=== PATIENT | male | born 1970 ===

== ENCOUNTER → 2023-11-01 08:27 | Outpatient (REF) | payer OTHER, SELFPAY | LOC: PAVMRI 08:27 | PROVIDERS: ATTENDING PHYSICIAN Internal Medicine Cardiovascular Disease; FAMILY PHYSICIAN Family Medicine | DX: I51.7 Cardiomegaly (principal); R07.9 Chest pain, unspecified | CPT/HCPCS: 75561; 75565; A9585 ==

== ENCOUNTER → 2023-12-05 18:04 | Outpatient (REF) | payer OTHER, SELFPAY | LOC: MRI 3T 18:04 | PROVIDERS: ATTENDING PHYSICIAN Internal Medicine; FAMILY PHYSICIAN Family Medicine | DX: I81 Portal vein thrombosis (principal) | CPT/HCPCS: 74183; A9575 ==

== ENCOUNTER → 2023-12-08 06:36 | Day surgery (SDC) | payer OTHER, SELFPAY | LOC: GI 06:36 | PROVIDERS: ATTENDING PHYSICIAN Internal Medicine | DX: Z12.11 Encounter for screening for malignant neoplasm of colon (principal); K57.30 Diverticulosis of large intestine without perforation or abscess without bleeding; R93.3 Abnormal findings on diagnostic imaging of other parts of digestive tract; K44.9 Diaphragmatic hernia without obstruction or gangrene; K26.9 Duodenal ulcer, unspecified as acute or chronic, without hemorrhage or perforation; I85.00 Esophageal varices without bleeding; D12.0 Benign neoplasm of cecum; D12.3 Benign neoplasm of transverse colon; D12.4 Benign neoplasm of descending colon; K29.50 Unspecified chronic gastritis without bleeding | CPT/HCPCS: 45385; 43239; 88305; 88342 ==

== ENCOUNTER → 2024-06-18 18:24 | Outpatient (REF) | payer OTHER, SELFPAY | LOC: MRI 3T 18:24 | PROVIDERS: ATTENDING PHYSICIAN Internal Medicine Hematology & Oncology; FAMILY PHYSICIAN Family Medicine | DX: I81 Portal vein thrombosis (principal); D68.69 Other thrombophilia; K76.0 Fatty (change of) liver, not elsewhere classified; R16.2 Hepatomegaly with splenomegaly, not elsewhere classified; C94.6 Myelodysplastic disease, not elsewhere classified | CPT/HCPCS: 74183; A9575 ==